=== PATIENT | female | born 1970 | race Caucasian/White ===

== ENCOUNTER 2024-07-10 06:07 | Day surgery (SDC) | payer BC ==
[2024-07-09 09:43] VITALS: BMI 34.2
[2024-07-10] MEDS ORDERED: Ferric Subsulfate 8 ML TOPICAL SOLN ONE (07:58)
[2024-07-10] MEDS ORDERED: PROPOFOL 20 ML ONE (08:01)
[2024-07-10] MEDS ORDERED: fentaNYL PF 100 MCG/2 ML SYRINGE ONE (08:01)
[2024-07-10] MEDS ORDERED: Sodium Chloride 0.9% 100 ML ONE (08:02)
[2024-07-10] MEDS ORDERED: Lidocaine 1% PF 5 ML VIAL ONE (08:02)
[2024-07-10] MEDS ORDERED: Dexmedetomidine 200 MCG/2 ML VIAL ONE (08:02)
[2024-07-10] MEDS ORDERED: Rocuronium Bromide 10 MG/ML (10ML VIAL) ONE (08:02)
[2024-07-10] MEDS ORDERED: Famotidine 20 MG TAB ONE (08:08)
[2024-07-10] MEDS ORDERED: Famotidine/PF 20 mg/2ml Vial ONE (08:11)
[2024-07-10] MEDS ORDERED: Midazolam HCl 2 mg/2 ml Vial ONE (08:11)
[2024-07-10] MEDS ORDERED: Ondansetron PF 4 MG/2 ML Vial ONE (08:26)
[2024-07-10] MEDS ORDERED: Dexamethasone 4 mg/ml Vial ONE (08:26)
[2024-07-10] MEDS ORDERED: methylPREDNISolone Acetate 40 mg/ml Vial ONE (08:32)
[2024-07-10] MEDS ORDERED: Glycopyrrolate 0.2 MG/ML 5 ML SYRINGE ONE (08:40)
[2024-07-10] MEDS ORDERED: NEOSTIGMINE 3 MG/3 ML SYRINGE ONE (08:40)
[2024-07-10] MEDS ORDERED: fentaNYL 50 mcg/mL 1 mL Vial ONE ×3 (09:08→09:25)
[2024-07-10] MEDS ORDERED: Hydrocodone-Acetamin 15 ML UDCUP ONE (10:20)
== END 2024-07-10 11:01 | disposition home or self-care (01) ==
LOC: SDC 06:07
PROVIDERS: ATTEND Otolaryngology Plastic Surgery within the Head & Neck
PROC: 0CTQXZZ Resection of Adenoids, External Approach (ICD-10-PCS; principal; 2024-07-10)
PROC: 0CTPXZZ Resection of Tonsils, External Approach (ICD-10-PCS; principal; 2024-07-10)
DX: J35.3 Hypertrophy of tonsils with hypertrophy of adenoids (principal); J35.01 Chronic tonsillitis; G47.30 Sleep apnea, unspecified; F32.A Depression, unspecified; Z79.899 Other long term (current) drug therapy; Z98.890 Other specified postprocedural states; Z88.2 Allergy status to sulfonamides
CPT/HCPCS: 88304; 93005; 93010; J1030; J1100; J2250; J2405; J2704; J3010; J3490